=== PATIENT | male | born 1950 | race Caucasian/White ===

== ENCOUNTER 2018-05-24 13:30 | Inpatient (IN) | payer OTHER ==
[~2018-05-24] VITALS: Ht 172.7 cm; Wt 68.0 kg
[2018-05-24] MEDS ORDERED: CATAFLAN PO (15:39)
[2018-05-24] MEDS ORDERED: NEURONTIN600 MG PO (15:40)
[2018-05-31] MEDS ORDERED: CLONAZEPAM0.5 MG PO (17:59)
[2018-05-31] MEDS ORDERED: GABAPENTIN800 MG PO (17:59)
[2018-05-31] MEDS ORDERED: PERCOCET 5-3251 EACH PO (17:59)
[2018-05-31] MEDS ORDERED: AMOX-CLAV 875-1 EACH PO (17:59)
[2018-05-31] MEDS ORDERED: DOCUSATE SODIU100 MG PO (17:59)
== END 2018-06-01 14:10 | disposition home or self-care (01) | DRG 455 ==
LOC: O/R 05-31 06:37
PROVIDERS: ADMIT Orthopaedic Surgery Orthopaedic Surgery of the Spine
PROC: 0SG00AJ Fusion of Lumbar Vertebral Joint with Interbody Fusion Device, Posterior Approach, Anterior Column, Open Approach (ICD-10-PCS; 2018-05-31)
PROC: 0SG0071 Fusion of Lumbar Vertebral Joint with Autologous Tissue Substitute, Posterior Approach, Posterior Column, Open Approach (ICD-10-PCS; 2018-05-31)
PROC: 0ST20ZZ Resection of Lumbar Vertebral Disc, Open Approach (ICD-10-PCS; 2018-05-31)
PROC: 07DS3ZZ Extraction of Vertebral Bone Marrow, Percutaneous Approach (ICD-10-PCS; 2018-05-31)
PROC: 0SG00A0 Fusion of Lumbar Vertebral Joint with Interbody Fusion Device, Anterior Approach, Anterior Column, Open Approach (ICD-10-PCS; principal; 2018-05-31 17:30)
DX: M43.16 Spondylolisthesis, lumbar region (principal); M48.062 Spinal stenosis, lumbar region with neurogenic claudication; M51.16 Intervertebral disc disorders with radiculopathy, lumbar region